=== PATIENT | female | born 1940 | race African-American/Black ===

== ENCOUNTER 2018-02-15 11:41 | Day surgery (SDC) | payer MEDICARE ==
[2018-02-15] MEDS ORDERED: CETUXIMAB IVPB SCH ×2 (12:15→12:30)
[2018-02-15] MEDS ORDERED: Leucovorin Calcium 50 MG in Dextrose 5% in Water 50 ML IVPB SCH (12:15)
[2018-02-15] MEDS ORDERED: ADMIXTURE FEE IVPB SCH ×2 (12:15→12:30)
[2018-02-15] MEDS ORDERED: WATER IVPB SCH (12:15)
[2018-02-15] MEDS ORDERED: DEXTROSE 5% IVPB SCH (12:15)
[2018-02-15] MEDS ORDERED: FLUOROURACIL IVPB SCH (12:15)
[2018-02-15] MEDS ORDERED: diphenhydrAMINE 50 MG/ML VIAL IVP SCH (12:15)
[2018-02-15] MEDS ORDERED: Dexamethasone 10 MG/ML VIAL SLOW IVP SCH (12:15)
[2018-02-15] MEDS ORDERED: PALONOSETRON HCL 0.05 MG/ML 5 ML VIAL IVP SCH (12:15)
[2018-02-15 12:25] VITALS: BP 132/58; TEMP 98.3
== END 2018-02-15 16:56 | disposition home or self-care (01) ==
LOC: ONC/OP 11:41
PROVIDERS: ATTEND Internal Medicine Hematology & Oncology
DX: Z51.11 Encounter for antineoplastic chemotherapy (principal); C20 Malignant neoplasm of rectum; C22.9 Malignant neoplasm of liver, not specified as primary or secondary; F17.200 Nicotine dependence, unspecified, uncomplicated
CPT/HCPCS: 96367; 96375; 96413; 96415; 96416; 96417; J0640; J1100; J1200; J2469; J7070; J9055; J9190

== ENCOUNTER 2018-02-22 10:52 | Day surgery (SDC) | payer MEDICARE, OTHER ==
[2018-02-22] MEDS ORDERED: Sodium Chloride 0.9% 30 ML ONE (11:13)
[2018-02-22] MEDS ORDERED: diphenhydrAMINE 50 MG/ML VIAL IVP SCH (11:30)
[2018-02-22] MEDS ORDERED: CETUXIMAB IVPB SCH (11:30)
[2018-02-22 11:51] VITALS: BP 188/75
== END 2018-02-22 12:56 | disposition home or self-care (01) ==
LOC: ONC/OP 10:52
PROVIDERS: ATTEND Internal Medicine Hematology & Oncology
DX: Z51.11 Encounter for antineoplastic chemotherapy (principal); C20 Malignant neoplasm of rectum; C22.9 Malignant neoplasm of liver, not specified as primary or secondary; F17.200 Nicotine dependence, unspecified, uncomplicated; K21.9 Gastro-esophageal reflux disease without esophagitis; Z79.899 Other long term (current) drug therapy
CPT/HCPCS: 36415; 80053; 82248; 83615; 83735; 84100; 84550; 96375; 96413; A4216; J1200; J1642; J9055

== ENCOUNTER 2018-03-01 13:49 | Day surgery (SDC) | payer MEDICARE, OTHER ==
[2018-03-01] MEDS ORDERED: CETUXIMAB IVPB SCH (14:30)
[2018-03-01] MEDS ORDERED: FLUOROURACIL IVPB SCH (14:30)
[2018-03-01] MEDS ORDERED: WATER IVPB SCH (14:30)
[2018-03-01] MEDS ORDERED: Leucovorin Calcium 50 MG in Dextrose 5% in Water 50 ML IVPB SCH (14:30)
[2018-03-01] MEDS ORDERED: DEXTROSE 5% IVPB SCH (14:30)
[2018-03-01] MEDS ORDERED: diphenhydrAMINE 50 MG/ML VIAL IVP SCH (14:30)
[2018-03-01] MEDS ORDERED: PALONOSETRON HCL 0.05 MG/ML 5 ML VIAL IVP SCH (14:30)
[2018-03-01] MEDS ORDERED: Sodium Chloride 0.9% 40 ML ONE (14:48)
[2018-03-01] MEDS ORDERED: Dexamethasone 10 MG/ML VIAL SLOW IVP SCH (15:30)
[2018-03-01 17:54] VITALS: BP 175/77; TEMP 98.1
== END 2018-03-01 18:12 | disposition home or self-care (01) ==
LOC: ONC/OP 13:49
PROVIDERS: ATTEND Internal Medicine Hematology & Oncology
DX: Z51.11 Encounter for antineoplastic chemotherapy (principal); C20 Malignant neoplasm of rectum; C18.0 Malignant neoplasm of cecum; C22.9 Malignant neoplasm of liver, not specified as primary or secondary; C78.00 Secondary malignant neoplasm of unspecified lung; N83.8 Other noninflammatory disorders of ovary, fallopian tube and broad ligament; K21.9 Gastro-esophageal reflux disease without esophagitis; F17.210 Nicotine dependence, cigarettes, uncomplicated; Z79.899 Other long term (current) drug therapy
CPT/HCPCS: 36415; 80053; 82248; 82378; 83615; 83735; 84100; 84550; 96367; 96375; 96413; 96416; 96417; A4216; J0640; J1100; J1200; J1642; J2469; J7070; J9055; J9190

== ENCOUNTER 2018-03-08 10:43 | Day surgery (SDC) | payer MEDICARE ==
[2018-03-08] MEDS ORDERED: CETUXIMAB IVPB SCH (11:15)
[2018-03-08] MEDS ORDERED: diphenhydrAMINE 50 MG/ML VIAL IVP SCH (11:15)
[2018-03-08 12:06] VITALS: BP 155/70; TEMP 98.8
== END 2018-03-08 13:55 | disposition home or self-care (01) ==
LOC: ONC/OP 10:43
PROVIDERS: ATTEND Internal Medicine Hematology & Oncology
DX: Z51.11 Encounter for antineoplastic chemotherapy (principal); C22.9 Malignant neoplasm of liver, not specified as primary or secondary; F17.200 Nicotine dependence, unspecified, uncomplicated; Z79.899 Other long term (current) drug therapy
CPT/HCPCS: 80053; 82248; 83615; 83735; 84100; 84550; 96375; 96413; J1200; J9055

== ENCOUNTER 2018-03-15 12:30 | Day surgery (SDC) | payer MEDICARE ==
[2018-03-15] MEDS ORDERED: WATER IVPB SCH (12:45)
[2018-03-15] MEDS ORDERED: Dexamethasone 10 MG/ML VIAL SLOW IVP SCH (12:45)
[2018-03-15] MEDS ORDERED: DEXTROSE 5% IVPB SCH (12:45)
[2018-03-15] MEDS ORDERED: FLUOROURACIL IVPB SCH (12:45)
[2018-03-15] MEDS ORDERED: Leucovorin Calcium 50 MG in Dextrose 5% in Water 50 ML IVPB SCH (12:45)
[2018-03-15] MEDS ORDERED: PALONOSETRON HCL 0.05 MG/ML 5 ML VIAL IVP SCH (13:00)
[2018-03-15] MEDS ORDERED: diphenhydrAMINE 50 MG/ML VIAL IVP SCH (13:00)
[2018-03-15] MEDS ORDERED: CETUXIMAB IVPB SCH (13:00)
[2018-03-15] MEDS ORDERED: Sodium Chloride 0.9% 30 ML ONE (13:13)
[2018-03-15 14:04] VITALS: BP 177/72; TEMP 98.7
== END 2018-03-15 15:30 | disposition home or self-care (01) ==
LOC: ONC/OP 12:30
PROVIDERS: ATTEND Internal Medicine Hematology & Oncology
DX: Z51.11 Encounter for antineoplastic chemotherapy (principal); C20 Malignant neoplasm of rectum; C22.9 Malignant neoplasm of liver, not specified as primary or secondary; C18.0 Malignant neoplasm of cecum; C78.00 Secondary malignant neoplasm of unspecified lung; F17.210 Nicotine dependence, cigarettes, uncomplicated; K21.9 Gastro-esophageal reflux disease without esophagitis; Z79.899 Other long term (current) drug therapy
CPT/HCPCS: 36415; 80053; 82248; 82378; 83615; 83735; 84100; 84550; 96368; 96413; 96415; A4216; J0640; J1100; J1200; J2469; J7070; J9055; J9190

== ENCOUNTER 2018-03-22 10:16 | Day surgery (SDC) | payer MEDICARE ==
[2018-03-22] MEDS ORDERED: diphenhydrAMINE 25 MG in Sodium Chloride 0.9% 50 ML IVPB SCH (10:45)
[2018-03-22] MEDS ORDERED: CETUXIMAB IVPB SCH (11:00)
[2018-03-22 11:55] VITALS: BP 177/74; TEMP 99.1
[2018-03-22] MEDS ORDERED: Sodium Chloride 0.9% 20 ML ONE (12:33)
== END 2018-03-22 12:40 | disposition home or self-care (01) ==
LOC: ONC/OP 10:16
PROVIDERS: ATTEND Internal Medicine Hematology & Oncology
DX: Z51.11 Encounter for antineoplastic chemotherapy (principal); C20 Malignant neoplasm of rectum; C22.9 Malignant neoplasm of liver, not specified as primary or secondary; F17.200 Nicotine dependence, unspecified, uncomplicated; Z79.899 Other long term (current) drug therapy
CPT/HCPCS: 36415; 80053; 82248; 83615; 83735; 84100; 84550; 96375; 96413; A4216; J1200; J1642; J7050; J9055

== ENCOUNTER 2018-03-29 10:58 | Day surgery (SDC) | payer MEDICARE ==
[2018-03-29] MEDS ORDERED: Dexamethasone 10 MG/ML VIAL SLOW IVP SCH (11:15)
[2018-03-29] MEDS ORDERED: WATER IVPB SCH (11:15)
[2018-03-29] MEDS ORDERED: DEXTROSE 5% IVPB SCH (11:15)
[2018-03-29] MEDS ORDERED: FLUOROURACIL IVPB SCH (11:15)
[2018-03-29] MEDS ORDERED: diphenhydrAMINE 50 MG/ML VIAL IVP SCH (11:15)
[2018-03-29] MEDS ORDERED: PALONOSETRON HCL 0.05 MG/ML 5 ML VIAL IVP SCH (11:15)
[2018-03-29] MEDS ORDERED: Leucovorin Calcium 50 MG in Dextrose 5% in Water 50 ML IVPB SCH (11:15)
[2018-03-29 11:19] VITALS: BP 150/68; TEMP 98.8
[2018-03-29] MEDS ORDERED: Sodium Chloride 0.9% 20 ML ONE (11:27)
[2018-03-29] MEDS ORDERED: ADMIXTURE FEE IVPB SCH (11:30)
[2018-03-29] MEDS ORDERED: CETUXIMAB IVPB SCH (11:30)
== END 2018-03-29 14:22 | disposition home or self-care (01) ==
LOC: ONC/OP 10:58
PROVIDERS: ATTEND Internal Medicine Hematology & Oncology
DX: Z51.11 Encounter for antineoplastic chemotherapy (principal); C20 Malignant neoplasm of rectum; C18.0 Malignant neoplasm of cecum; C22.9 Malignant neoplasm of liver, not specified as primary or secondary; C78.00 Secondary malignant neoplasm of unspecified lung; K21.9 Gastro-esophageal reflux disease without esophagitis; F17.210 Nicotine dependence, cigarettes, uncomplicated
CPT/HCPCS: 36415; 80053; 82248; 83615; 83735; 84100; 84550; 96367; 96375; 96413; 96416; 96417; A4216; J0640; J1100; J1200; J1642; J2469; J7070; J9055

== ENCOUNTER 2018-04-05 10:24 | Day surgery (SDC) | payer MEDICARE ==
[2018-04-05] MEDS ORDERED: diphenhydrAMINE 50 MG/ML VIAL IVP SCH (11:00)
[2018-04-05] MEDS ORDERED: CETUXIMAB IVPB SCH (11:00)
[2018-04-05] MEDS ORDERED: Sodium Chloride 0.9% 20 ML ONE (11:02)
[2018-04-05 12:01] VITALS: BP 170/72; TEMP 98.7
== END 2018-04-05 12:58 | disposition home or self-care (01) ==
LOC: ONC/OP 10:24
PROVIDERS: ATTEND Internal Medicine Hematology & Oncology
DX: Z51.11 Encounter for antineoplastic chemotherapy (principal); C20 Malignant neoplasm of rectum; C22.9 Malignant neoplasm of liver, not specified as primary or secondary; C78.00 Secondary malignant neoplasm of unspecified lung; K21.9 Gastro-esophageal reflux disease without esophagitis; F17.210 Nicotine dependence, cigarettes, uncomplicated; Z79.899 Other long term (current) drug therapy
CPT/HCPCS: 80053; 82248; 83615; 83735; 84100; 84550; 96375; 96413; A4216; J1200; J1642; J9055

== ENCOUNTER → 2018-04-12 | Day surgery (SDC) | payer MEDICARE ==
[~2018-04-12] MED LIST: ADMIXTURE FEE IVPB SCH; CETUXIMAB IVPB SCH; DEXTROSE 5% IVPB SCH; Dexamethasone 10 MG/ML VIAL SLOW IVP SCH; FLUOROURACIL IVPB SCH; Leucovorin Calcium 50 MG in Dextrose 5% in Water 50 ML IVPB SCH; PALONOSETRON HCL 0.05 MG/ML 5 ML VIAL IVP SCH; Sodium Chloride 0.9% 20 ML ONE; WATER IVPB SCH; diphenhydrAMINE 50 MG/ML VIAL IVP SCH
[2018-04-12 11:09] VITALS: BP 172/74; TEMP 98.5
== END ==
LOC: ONC/OP 10:46
PROVIDERS: ATTEND Internal Medicine Hematology & Oncology
DX: Z51.11 Encounter for antineoplastic chemotherapy (principal); C20 Malignant neoplasm of rectum; C22.9 Malignant neoplasm of liver, not specified as primary or secondary
CPT/HCPCS: 36415; 80053; 81001; 82248; 83615; 83735; 84100; 84550; 96375; 96413; 96416; 96417; A4216; J0640; J1100; J1200; J2469; J7070; J9055; J9190

== ENCOUNTER 2018-04-27 09:19 | Day surgery (SDC) | payer MEDICARE ==
[2018-04-27] MEDS ORDERED: Sodium Chloride 0.9% 30 ML ONE (09:33)
[2018-04-27] MEDS ORDERED: diphenhydrAMINE 25 MG, Admixture Fee 1 EACH in Sodium Chloride 0.9% 50 ML IVPB SCH (09:45)
[2018-04-27] MEDS ORDERED: PALONOSETRON HCL 0.05 MG/ML 5 ML VIAL IVP SCH (09:45)
[2018-04-27] MEDS ORDERED: DEXTROSE 5% IVPB SCH (09:45)
[2018-04-27] MEDS ORDERED: CETUXIMAB IVPB SCH (09:45)
[2018-04-27] MEDS ORDERED: FLUOROURACIL IVPB SCH (09:45)
[2018-04-27] MEDS ORDERED: ADMIXTURE FEE IVPB SCH (09:45)
[2018-04-27] MEDS ORDERED: Leucovorin Calcium 50 MG in Dextrose 5% in Water 50 ML IVPB SCH (09:45)
[2018-04-27] MEDS ORDERED: WATER IVPB SCH (09:45)
[2018-04-27] MEDS ORDERED: Dexamethasone 10 MG/ML VIAL SLOW IVP SCH (09:45)
[2018-04-27 10:39] VITALS: BP 168/72; TEMP 97.9
[2018-04-27] MEDS ORDERED: Dexamethasone 4 mg/ml Vial SLOW IVP SCH (12:00)
== END 2018-04-27 14:40 | disposition home or self-care (01) ==
LOC: ONC/OP 09:19
PROVIDERS: ATTEND Internal Medicine Hematology & Oncology
DX: Z51.11 Encounter for antineoplastic chemotherapy (principal); C20 Malignant neoplasm of rectum; C22.9 Malignant neoplasm of liver, not specified as primary or secondary; K21.9 Gastro-esophageal reflux disease without esophagitis; F17.200 Nicotine dependence, unspecified, uncomplicated
CPT/HCPCS: 36415; 80053; 82248; 83615; 83735; 84100; 84550; 96367; 96375; 96413; 96416; 96417; A4216; J0640; J1100; J1200; J1642; J2469; J7050; J7070; J9055; J9190

== ENCOUNTER 2018-05-04 13:49 | Day surgery (SDC) | payer MEDICARE ==
[2018-05-04] MEDS ORDERED: Sodium Chloride 0.9% 10 ML ONE (13:59)
[2018-05-04] MEDS ORDERED: ADMIXTURE FEE IVPB SCH (14:00)
[2018-05-04] MEDS ORDERED: CETUXIMAB IVPB SCH (14:00)
[2018-05-04] MEDS ORDERED: diphenhydrAMINE 25 MG, Admixture Fee 1 EACH in Sodium Chloride 0.9% 50 ML IVPB SCH (14:00)
[2018-05-04 14:23] VITALS: BP 198/83; TEMP 98.3
== END 2018-05-04 16:13 | disposition home or self-care (01) ==
LOC: ONC/OP 13:49
PROVIDERS: ATTEND Internal Medicine Hematology & Oncology
DX: Z51.11 Encounter for antineoplastic chemotherapy (principal); C20 Malignant neoplasm of rectum; C22.9 Malignant neoplasm of liver, not specified as primary or secondary; K21.9 Gastro-esophageal reflux disease without esophagitis; F17.200 Nicotine dependence, unspecified, uncomplicated; Z79.899 Other long term (current) drug therapy
CPT/HCPCS: 36415; 80053; 82248; 83615; 83735; 84100; 84550; 96375; 96413; A4216; J1200; J7050; J9055